=== PATIENT | female | born 1980 | race Caucasian/White ===

== ENCOUNTER 2017-08-25 16:19 | Emergency (ER) | payer SELFPAY ==
[2017-08-25 16:40] VITALS: BP 141/77; PULSE 76; TEMP 98.9; BMI 28.3
[2017-08-25] MEDS ORDERED: KETOROLAC TROMETHAMINE 60 MG/2 ML VIAL IM ONE (18:26)
[2017-08-25] MEDS ORDERED: diazePAM 5 MG TABLET PO ONE (18:26)
[2017-08-25] MEDS ORDERED: KETOROLAC TROMETHAMINE 60 MG/2 ML VIAL ONE (18:30)
[2017-08-25] MEDS ORDERED: diazePAM 5 MG TABLET ONE (18:30)
--- NOTE | 2017-08-25 18:37 | PDOC ---
History of Present Illness - General Chief Complaint: Back Pain Stated Complaint: PAIN Time Seen by Provider: 08/25/17 17:28 - History of Present Illness Initial Comments: 08/25/17 18:30 CHIEF COMPLAINT: lower back pain HISTORY OF PRESENT ILLNESS: 36 yo F with hx of herniated discs presents to [facility] with lower back pain x 3 days. Patient states "I did something, I'm not sure what, to my back and it just hasn't gotten any better." Patient states the pain radiates "mostly down my left leg, but sometimes my right too" but denies any loss of bowel or bladder function or loss of sensation to extremities. Patient states she did have an MRI done in [place] about 2 years ago that showed that she had herniated discs at L4/L5. PAST MEDICAL HISTORY: Denies past medical history FAMILY HISTORY: Denies SOCIAL HISTORY: Denies tobacco, alcohol, illicit drug use. SURGICAL HISTORY: Denies ALLERGIES: No known drug allergies REVIEW OF SYSTEMS General/Constitutional: Denies fever or chills. Denies weakness, weight change. HEENT: Denies change in vision. Denies ear pain or discharge. Denies sore throat. Cardiovascular: Denies chest pain or shortness of breath. Respiratory: Denies cough, wheezing, or hemoptysis. Gastrointestinal: Denies nausea, vomiting, diarrhea or constipation. Denies rectal bleeding. Genitourinary: Denies dysuria, frequency, or change in urination. Musculoskeletal: Lower back pain radiating to legs. Skin and breasts: Denies rash or easy bruising. Neurologic: Denies headache, vertigo, loss of consciousness, or loss of sensation. PHYSICAL EXAM General Appearance: Well-appearing, appropriately dressed. No apparent distress. HEENT: EOMI, PERRLA. No conjunctival pallor. No photophobia, scleral icterus. Neck: No midline tenderness to cervical spine. Supple. Trachea midline. No tenderness, rigidity, carotid bruit, stridor, lymphadenopathy, or thyromegaly. Respiratory/Chest: Lungs CTAB. No shortness of breath, chest tenderness, respiratory distress, accessory muscle use. No crackles, rales, rhonchi, stridor , wheezing, dullness Cardiovascular: RRR. S1, S2. No JVD, murmur, bradycardia, tachycardia. Gastrointestinal/Abdominal: Normal bowel sounds. Abdomen soft, non-distended. No tenderness or rebound tenderness. No organomegaly, pulsatile mass, guarding , hernia, hepatomegaly, splenomegaly. Musculoskeletal/Extremities: Midline tenderness to lumbar spine and to left lower back. FROM of all extremities, normal capillary refill. Pelvis Stable. No tenderness to extremities, pedal edema, swelling, erythema or deformity. Integumentary: Appropriate color, dry, warm. No cyanosis, erythema, jaundice or rash Neurologic: practice billing associate II-XII intact. Fully oriented, alert. Appropriate mood/affect. Motor strength 5/5. No appreciable EOM palsy, facial droop or sensory deficit. Past History - Past Medical History Allergies/Adverse Reactions: Allergies Allergy/AdvReac Type Severity Reaction Status Date / Time No Known Allergies Allergy Verified 08/25/17 16:29 Home Medications: Ambulatory Orders Cyclobenzaprine HCl 7.5 mg PO HS #7 tablet 08/25/17 Ibuprofen [Advil -] 600 mg PO TID 08/25/17 Naproxen [Naprosyn -] 250 mg PO BID #14 tablet 08/25/17 Psychiatric Problems: Yes (Anxiety/ Depression) Other medical history: Fibromyalgia/ herniated disc L4 & L5/ - Immunization History Immunization Up to Date: Yes - Suicide/Smoking/Psychosocial Hx Smoking History: Current every day smoker Number of Cigarettes Smoked Daily: 10 Information on smoking cessation initiated: No Hx Alcohol Use: No Drug/Substance Use Hx: No Substance Use Type: None *Physical Exam - Vital Signs Last Vital Signs Temp Pulse Resp BP Pulse Ox 98.9 F 76 15 141/77 99 08/25/17 16:30 08/25/17 16:30 08/25/17 16:30 08/25/17 16:30 08/25/17 16:30 ED Treatment Course - ADDITIONAL ORDERS Additional order review: Laboratory Results 08/25/17 18:10 Urine HCG, Qual Negative Medical Decision Making - Medical Decision Making 08/25/17 18:37 36 yo F with hx of herniated discs presents to [facility] with lower back pain x 3 days. -Toradol IM -Valium po *DC/Admit/Observation/Transfer Diagnosis at time of Disposition: Back pain with sciatica - Discharge Dispostion Disposition: HOME Condition at time of disposition: Stable Admit: No - Prescriptions Prescriptions: Cyclobenzaprine HCl 7.5 mg PO HS #7 tablet Naproxen [Naprosyn -] 250 mg PO BID #14 tablet - Referrals Referrals: Domingo Coffey MD [Staff Physician] - - Patient Instructions Printed Discharge Instructions: DI for Back Pain With Sciatica Additional Instructions: Please take medications as prescribed; do NOT drive, drink alcohol, or operate machinery while taking cyclobenzaprine (Flexeril). Follow up with orthopedics within the next 1-2 weeks for further evaluation and possible therapy or repeat MRI. If you develop ANY loss of bowel or bladder function, loss of sensation/ numbness/tingling to your legs, or are unable to walk due to your pain, or you develop any new or worsening symptoms, please return to the ER.
== END 2017-08-25 19:11 | disposition home or self-care (01) ==
LOC: JERFT 16:19
PROC: 3E0233Z Introduction of Anti-inflammatory into Muscle, Percutaneous Approach (ICD-10-PCS; principal; 2017-08-25)
DX: M54.42 Lumbago with sciatica, left side (principal); M51.16 Intervertebral disc disorders with radiculopathy, lumbar region; F41.8 Other specified anxiety disorders; M79.7 Fibromyalgia; F17.210 Nicotine dependence, cigarettes, uncomplicated
CPT/HCPCS: 84703; 99281-25

== ENCOUNTER 2018-05-26 15:38 | Emergency (ER) | payer OTHER ==
[2018-05-26 15:42] VITALS: TEMP 98.1; BMI 27.4
[2018-05-26] MEDS ORDERED: ONDANSETRON 4 MG/2 ML VIAL IVPUSH STA (16:42)
--- NOTE | 2018-05-26 16:42 | PDOC ---
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 She states she is concerned about the LUQ pain because it is unlike her usual cramping with her IBS. She reports the pain as constant, localized, 7/10, and tense. She reportedly had one BM today, but it was very small and dry. She reports her last normal BM was 3 days ago and usually has a large BM every couple of days. Secondarily, she reports intermittent nausea, but no vomiting. The patient denies chest pain, shortness of breath, headache and dizziness. The patient denies fever, chills, diarrhea. The patient denies dysuria, frequency, urgency and hematuria. Allergies: NKDA Past surgical history: partial hysterectomy, cholecystectomy (3 months ago) Social history: denies tobacco use. PCP - Dr. Oviedo ([facility]) - Physicial Exam PE: 05/26/18 16:43 GENERAL: Well developed, well nourished. Awake and alert. No acute distress. HEENT: Normocephalic, atraumatic. PERRLA, EOMI. No conjunctival pallor. Sclera are non- icteric. Moist mucous membranes. Oropharynx is clear. NECK: Supple. Full ROM. No JVD. Carotid pulses 2+ and symmetric, without bruits. No thyromegaly. No lymphadenopathy. CARDIOVASCULAR: Regular rate and rhythm. No murmurs, rubs, or gallops. Distal pulses are 2+ and symmetric. PULMONARY: No evidence of respiratory distress. Lungs clear to auscultation bilaterally. No wheezing, rales or rhonchi. ABDOMINAL: (+) point tenderness to LUQ just under left anterior ribs. Soft. Non-distended. No rebound or guarding. No organomegaly. Normoactive bowel sounds. MUSCULOSKELETAL Normal range of motion at all joints. No bony deformities or tenderness. No CVA tenderness. EXTREMITIES: No cyanosis. No clubbing. No edema. No calf tenderness. SKIN: Warm and dry. Normal capillary refill. No rashes. No jaundice. NEUROLOGICAL: Alert, awake, appropriate. Cranial nerves 2-12 intact. Normoreflexic in the upper and lower extremities. Normal speech. Toes are down-going bilaterally. Gait is normal without ataxia. PSYCHIATRIC: Cooperative. Good eye contact. Appropriate mood and affect. - Medical Decision Making 05/26/18 16:45 Documentation prepared by Stephanie Bynum, acting as medical safety director for Salima Burns MD <Stephanie Bynum - Last Filed: 05/26/18 16:43> - Resident Resident Name: Gen Shoemaker - ED Attending Attestation I have performed the following: I have examined & evaluated the patient, The case was reviewed & discussed with the resident, I agree w/resident's findings & plan, Exceptions are as noted - Medical Decision Making 05/27/18 01:08 labs reviewed unremarkable imp IBD plan follow up with GI <Salima Burns - Last Filed: 05/27/18 01:09>
--- NOTE | 2018-05-26 16:46 | PDOC ---
History of Present Illness - General Chief Complaint: Pain Stated Complaint: ABD PAIN Time Seen by Provider: 05/26/18 16:15 - History of Present Illness Initial Comments: 05/26/18 16:15 Ms. Nugent is a 37 yo female w/ pmh of herniated discs who presents for evaluation of The patient denies chest pain, shortness of breath, headache and dizziness. Denies fever, chills, nausea, vomit, diarrhea and constipation. Denies dysuria, frequency, urgency and hematuria. Allergies: Past History - Past Medical History Allergies/Adverse Reactions: Allergies Allergy/AdvReac Type Severity Reaction Status Date / Time No Known Allergies Allergy Verified 05/26/18 15:42 Home Medications: Ambulatory Orders Cyclobenzaprine HCl 7.5 mg PO HS #7 tablet 08/25/17 Ibuprofen [Advil -] 600 mg PO TID 08/25/17 Naproxen [Naprosyn -] 250 mg PO BID #14 tablet 08/25/17 COPD: Yes GI Disorders: Yes (IBS) Psychiatric Problems: Yes (Anxiety/ Depression) Other medical history: fibromyalgia - Surgical History Cholecystectomy: Yes - Immunization History Immunization Up to Date: Yes - Suicide/Smoking/Psychosocial Hx Smoking History: Current every day smoker Number of Cigarettes Smoked Daily: 20 Information on smoking cessation initiated: No Hx Alcohol Use: No Drug/Substance Use Hx: No Substance Use Type: None Review of Systems - Review of Systems Comments:: 05/26/18 16:16 GENERAL/CONSTITUTIONAL: No fever or chills. No weakness. HEAD, EYES, EARS, NOSE AND THROAT: No change in vision. No ear pain or discharge. No sore throat. CARDIOVASCULAR: No chest pain or shortness of breath RESPIRATORY: No cough, wheezing, or hemoptysis. GASTROINTESTINAL: No nausea, vomiting, diarrhea or constipation. GENITOURINARY: No dysuria, frequency, or change in urination. MUSCULOSKELETAL: No joint or muscle swelling or pain. No neck or back pain. SKIN: No rash NEUROLOGIC: No headache, vertigo, loss of consciousness, or change in strength/ sensation. ENDOCRINE: No increased thirst. No abnormal weight change HEMATOLOGIC/LYMPHATIC: No anemia, easy bleeding, or history of blood clots. ALLERGIC/IMMUNOLOGIC: No hives or skin allergy. *Physical Exam - Vital Signs Last Vital Signs Temp Pulse Resp BP Pulse Ox 98.1 F 79 18 141/85 99 07/01/18 15:39 05/26/18 15:39 05/26/18 15:39 05/26/18 15:39 05/26/18 15:39
--- NOTE | 2018-05-26 17:02 | PDOC ---
History of Present Illness - General Chief Complaint: Pain Stated Complaint: ABD PAIN Time Seen by Provider: 05/26/18 16:15 - History of Present Illness Initial Comments: 05/26/18 16:55 Ms. Nugent is a 37 yo female w/ pmh of Fibromyalgia, IBS, diverticulitis, diverticulosis who presents for evaluation of constipation and stomach pain. Last BM today was small and hard; she had not previously had a bowel movement for 3 days - reports this is normal for her. Also, reports 06/04 constant abdominal pain and minor nausea (both constant) since Sunday. The patient denies chest pain, shortness of breath, headache and dizziness. Denies fever, chills, vomit, and diarrhea. Denies dysuria, frequency, urgency and hematuria. Allergies: NKDA Past History - Past Medical History Allergies/Adverse Reactions: Allergies Allergy/AdvReac Type Severity Reaction Status Date / Time No Known Allergies Allergy Verified 05/26/18 15:42 Home Medications: Ambulatory Orders Cyclobenzaprine HCl 7.5 mg PO HS #7 tablet 08/25/17 Ibuprofen [Advil -] 600 mg PO TID 08/25/17 Naproxen [Naprosyn -] 250 mg PO BID #14 tablet 08/25/17 Magnesium Citrate [Citroma -] 195 ml PO ONCE #1 bottle 05/26/18 Polyethylene Glycol 3350 [Miralax (For Bowel Prep) -] 17 gm PO DAILY #1 bottle 05/26/18 COPD: Yes GI Disorders: Yes (IBS) Psychiatric Problems: Yes (Anxiety/ Depression) Other medical history: fibromyalgia - Surgical History Cholecystectomy: Yes - Immunization History Immunization Up to Date: Yes - Suicide/Smoking/Psychosocial Hx Smoking History: Current every day smoker Number of Cigarettes Smoked Daily: 20 Information on smoking cessation initiated: No Hx Alcohol Use: No Drug/Substance Use Hx: No Substance Use Type: None Review of Systems - Review of Systems Comments:: 05/26/18 16:58 GENERAL/CONSTITUTIONAL: No fever or chills. No weakness. HEAD, EYES, EARS, NOSE AND THROAT: No change in vision. No ear pain or discharge. No sore throat. CARDIOVASCULAR: No chest pain or shortness of breath RESPIRATORY: No cough, wheezing, or hemoptysis. GASTROINTESTINAL: +RUQ pain w/ nausea and constipation as described. No vomiting or diarrhea. GENITOURINARY: No dysuria, frequency, or change in urination. MUSCULOSKELETAL: No joint or muscle swelling or pain. No neck or back pain. SKIN: No rash NEUROLOGIC: No headache, vertigo, loss of consciousness, or change in strength/ sensation. ENDOCRINE: No increased thirst. No abnormal weight change HEMATOLOGIC/LYMPHATIC: No anemia, easy bleeding, or history of blood clots. ALLERGIC/IMMUNOLOGIC: No hives or skin allergy. *Physical Exam - Vital Signs Last Vital Signs Temp Pulse Resp BP Pulse Ox 98.1 F 79 18 141/85 99 05/26/18 15:39 05/26/18 15:39 05/26/18 15:39 05/26/18 15:39 05/26/18 15:39 - Physical Exam Comments: 05/26/18 16:58 GENERAL: Awake, alert, and fully oriented, in no acute distress HEAD: No signs of trauma, normocephalic, atraumatic EYES: PERRLA, EOMI, sclera anicteric, conjunctiva clear ENT: Auricles normal inspection, hearing grossly normal, nares patent, oropharynx clear without exudates. Moist mucosa NECK: Normal ROM, supple, no lymphadenopathy, JVD, or masses LUNGS: No distress, speaks full sentences, clear to auscultation bilaterally HEART: Regular rate and rhythm, normal S1 and S2, no murmurs, rubs or gallops, peripheral pulses normal and equal bilaterally. ABDOMEN: +LUQ pain. Soft, normoactive bowel sounds. No guarding, no rebound. No masses EXTREMITIES: Normal inspection, Normal range of motion, no edema. No clubbing or cyanosis. NEUROLOGICAL: Cranial nerves II through XII grossly intact. Normal speech, normal gait, no focal sensorimotor deficits SKIN: Warm, Dry, normal turgor, no rashes or lesions noted. ED Treatment Course - LABORATORY CBC & Chemistry Diagram: 05/26/18 17:20 05/26/18 17:20 Medical Decision Making - Medical Decision Making 05/26/18 18:55 Ms. Nugent is a 37 yo female w/ pmh as described who presents for evaluation of abdominal pain. Patient now reporting she believes excess stool to be etiology of pain - agree with this assessment. Flat/Upright XR confirms patient has excess stool and no air fluid levels indicative of obstruction. Labs grossly wnl as below. Awaiting UA and will discharge with miralax / citroma for symptomatic relief assuming no acute UA findings. Patient signed off to Dr. Nieto for further evaluation. Laboratory Results - last 24 hr 05/26/18 05/26/18 17:20 17:20 WBC 8.8 RBC 3.99 Hgb 13.2 Hct 39.0 MCV 97.7 H MCH 33.1 MCHC 33.9 RDW 14.0 Plt Count 173 MPV 9.9 Absolute Neuts (auto) 5.6 Neutrophils % 63.5 Lymphocytes % 28.1 Monocytes % 5.8 Eosinophils % 1.7 Basophils % 0.9 Nucleated RBC % 0 Sodium 141 Potassium 4.3 Chloride 108 H Carbon Dioxide 26 Anion Gap 7 L BUN 15 Creatinine 1.0 Creat Clearance w eGFR > 60 Random Glucose 82 Calcium 8.4 L Total Bilirubin 0.4 AST 29 ALT 33 Alkaline Phosphatase 82 Total Protein 6.4 Albumin 3.3 L *DC/Admit/Observation/Transfer Diagnosis at time of Disposition: Constipation Qualifiers: Constipation type: unspecified constipation type Qualified Code(s): K59.00 - Constipation, unspecified - Discharge Dispostion Disposition: HOME Condition at time of disposition: Good - Prescriptions Prescriptions: Magnesium Citrate [Citroma -] 195 ml PO ONCE #1 bottle Polyethylene Glycol 3350 [Miralax (For Bowel Prep) -] 17 gm PO DAILY #1 bottle - Referrals - Patient Instructions Printed Discharge Instructions: Constipation Additional Instructions: Come back to the ER for any new, worsening or concerning symptom. - Post Discharge Activity
[2018-05-26] MEDS ORDERED: KETOROLAC TROMETHAMINE 15 MG/ML VIAL IVPUSH ONE (17:08)
[2018-05-26] MEDS ORDERED: SODIUM CHLORIDE 1,000 ML IV STA (17:08)
[2018-05-26] MEDS ORDERED: KETOROLAC TROMETHAMINE 15 MG/ML VIAL ONE (17:12)
[2018-05-26] MEDS ORDERED: ONDANSETRON 4 MG/2 ML VIAL ONE (17:12)
[2018-05-26 17:30] LABS: BASO % 0.9 % (0-2.0); EOS % 1.7 % (0-4.5); HEMOGLOBIN 13.2 GM/dL (10.7-15.3); LYMPH % 28.1 % (8-40); MCH 33.1 pg (25.7-33.7); MCHC 33.9 g/dl (32.0-36.0); MEAN CELL VOLUME 97.7 fl (80-96); MEAN PLT VOLUME 9.9 fl (7.5-11.1); MONO % 5.8 % (3.8-10.2); NEUT % 63.5 % (42.8-82.8); PLATELET COUNT 173 K/MM3 (134-434); RBC 3.99 M/mm3 (3.60-5.2); WHITE BLOOD COUNT 8.8 K/mm3 (4.0-10.0)
[2018-05-26 17:41] VITALS: BP 108/77; PULSE 69
[2018-05-26 17:51] LABS: ALBUMIN 3.3 g/dl (3.4-5.0); ALK PHOS 82 U/L (45-117); ANION GAP 7 (8-16); BILIRUBIN,TOTAL 0.4 mg/dL (0.2-1.0); BLOOD UREA NITROGEN 15 mg/dL (7-18); CALCIUM 8.4 mg/dL (8.5-10.1); CHLORIDE 108 mmol/L (98-107); CO2 26 mmol/L (21-32); GLUCOSE,RANDOM 82 mg/dL (74-106); POTASSIUM 4.3 mmol/L (3.5-5.1); SGOT/AST 29 U/L (15-37); SGPT/ALT 33 U/L (12-78); SODIUM 141 mmol/L (136-145); TOT PROT 6.4 g/dl (6.4-8.2)
[2018-05-26] MEDS ORDERED: MAGNESIUM CITRATE 300 ML BOTTLE PO ONE (19:07)
[2018-05-26] MEDS ORDERED: MAGNESIUM CITRATE 300 ML BOTTLE ONE (19:27)
--- NOTE | 2018-05-26 19:41 | PDOC ---
*Physical Exam - Vital Signs Last Vital Signs Temp Pulse Resp BP Pulse Ox 98.1 F 69 17 108/77 99 05/26/18 17:40 05/26/18 17:40 05/26/18 17:40 05/26/18 17:40 05/26/18 17:40 ED Treatment Course - LABORATORY CBC & Chemistry Diagram: 05/26/18 17:20 05/26/18 17:20 - ADDITIONAL ORDERS Additional order review: Laboratory Results 05/26/18 17:20 Sodium 141 Potassium 4.3 Chloride 108 H Carbon Dioxide 26 Anion Gap 7 L BUN 15 Creatinine 1.0 Creat Clearance w eGFR > 60 Random Glucose 82 Calcium 8.4 L Total Bilirubin 0.4 AST 29 ALT 33 Alkaline Phosphatase 82 Total Protein 6.4 Albumin 3.3 L 05/26/18 17:20 RBC 3.99 MCV 97.7 H MCHC 33.9 RDW 14.0 MPV 9.9 Neutrophils % 63.5 Lymphocytes % 28.1 Monocytes % 5.8 Eosinophils % 1.7 Basophils % 0.9 - Medications Given in the ED: ED Medications Discontinued Medications Generic Name Dose Route Start Last Admin Trade Name Sergioq PRN Reason Stop Dose Admin Sodium Chloride 1,000 mls @ 1,000 mls/hr 05/26/18 17:08 05/26/18 17:27 Normal Saline - IV 05/26/18 18:07 1,000 mls/hr ASDIR STA Administration Ketorolac Tromethamine 15 mg 05/26/18 17:08 05/26/18 17:27 Toradol Injection - IVPUSH 05/26/18 17:09 15 mg ONCE ONE Administration Ondansetron HCl 4 mg 05/26/18 16:42 05/26/18 17:27 Zofran Injection IVPUSH 05/26/18 16:43 4 mg ONCE STA Administration *DC/Admit/Observation/Transfer Diagnosis at time of Disposition: Constipation - Discharge Dispostion Disposition: HOME Condition at time of disposition: Good Decision to Admit order: No - Prescriptions Prescriptions: Magnesium Citrate [Citroma -] 195 ml PO ONCE #1 bottle Polyethylene Glycol 3350 [Miralax (For Bowel Prep) -] 17 gm PO DAILY #1 bottle - Referrals - Patient Instructions Printed Discharge Instructions: Constipation Additional Instructions: Come back to the ER for any new, worsening or concerning symptom. - Post Discharge Activity
== END 2018-05-26 20:15 | disposition home or self-care (01) ==
LOC: JER 15:38
PROC: 3E0333Z Introduction of Anti-inflammatory into Peripheral Vein, Percutaneous Approach (ICD-10-PCS; principal; 2018-05-26)
PROC: 3E033GC Introduction of Other Therapeutic Substance into Peripheral Vein, Percutaneous Approach (ICD-10-PCS; 2018-05-26)
PROC: 3E0337Z Introduction of Electrolytic and Water Balance Substance into Peripheral Vein, Percutaneous Approach (ICD-10-PCS; 2018-05-26)
DX: K59.00 Constipation, unspecified (principal)
CPT/HCPCS: 36415; 74019-TC-FY; 80053; 85025; 96361; 96374; 96375; 99283-25; J7030

== ENCOUNTER 2021-01-14 20:11 | Emergency (ER) | payer SELFPAY ==
[2021-01-14 20:28] VITALS: BP 130/83; PULSE 70; TEMP 99.3; BMI 22.1
[2021-01-14] MEDS ORDERED: CYCLOBENZAPRINE HCL 5 MG TABLET PO STA (20:33)
== END 2021-01-14 20:47 | disposition home or self-care (01) ==
LOC: FER 20:11
DX: M25.512 Pain in left shoulder (principal)
CPT/HCPCS: 99283-25

== ENCOUNTER 2021-01-25 16:35 | Emergency (ER) | payer OTHER ==
[2021-01-25 17:06] VITALS: BP 123/82; PULSE 93; TEMP 97.8; BMI 21.2
== END 2021-01-25 17:33 | disposition home or self-care (01) ==
LOC: JERFT 16:35
DX: R22.0 Localized swelling, mass and lump, head (principal); K08.89 Other specified disorders of teeth and supporting structures
CPT/HCPCS: 99281-25

== ENCOUNTER 2021-02-21 17:09 | Emergency (ER) | payer OTHER ==
[2021-02-21 17:42] VITALS: BP 142/84; PULSE 77; TEMP 99; BMI 21.2
[2021-02-21] MEDS ORDERED: AMOX TR/POT CLAV 875MG/125MG TABLETS (FP) PO ONE (18:31)
[2021-02-21] MEDS ORDERED: AMOX TR/POT CLAV 875MG/125MG TABLETS (FP) ONE (18:36)
[2021-02-21] MEDS ORDERED: MUPIROCIN 2% TOPICAL OINTMENT 22 GM TUBE TP SCH (22:00)
== END 2021-02-21 19:12 | disposition home or self-care (01) ==
LOC: FER 17:09
DX: L08.9 Local infection of the skin and subcutaneous tissue, unspecified (principal)
CPT/HCPCS: 99285-25

== ENCOUNTER 2021-02-22 19:57 | Emergency (ER) | payer OTHER ==
[2021-02-22 20:41] VITALS: BP 166/99; PULSE 103; TEMP 99; BMI 21.2
== END 2021-02-22 21:53 | disposition home or self-care (01) ==
LOC: FER 19:57
DX: S30.824A Blister (nonthermal) of vagina and vulva, initial encounter (principal)
CPT/HCPCS: 99282-25

== ENCOUNTER 2021-03-03 23:12 | Emergency (ER) | payer OTHER ==
[2021-03-04 00:22] VITALS: BP 112/77; PULSE 89; TEMP 98.4; BMI 21.6
[2021-03-04] MEDS ORDERED: morphine CARPU-JECT 2 MG/1 ML DISP.SYRIN IM ONE (00:22)
[2021-03-04] MEDS ORDERED: MORPHINE SULFATE 2 MG/ML VIAL ONE (00:47)
== END 2021-03-04 03:32 | disposition home or self-care (01) ==
LOC: JER 23:12
PROC: 3E023GC Introduction of Other Therapeutic Substance into Muscle, Percutaneous Approach (ICD-10-PCS; principal; 2021-03-03)
DX: M79.604 Pain in right leg (principal)
CPT/HCPCS: 73523-TC-FY; 73552-TC-RT-FY; 73562-TC-RT-FY; 99284-25

== ENCOUNTER 2021-08-06 11:34 | Emergency (ER) | payer OTHER ==
[2021-08-06 12:42] VITALS: BP 113/68; PULSE 60; TEMP 97.6; BMI 19.5
[2021-08-06] MEDS ORDERED: ACETAMINOPHEN 500 MG TABLET (FP) PO ONE (13:04)
[2021-08-06] MEDS ORDERED: ACETAMINOPHEN 325 MG TABLET (FP) ONE (13:33)
[2021-08-06 15:02] LABS: URINE BENZODIAZEPINES NEGATIVE (NEGATIVE)
[2021-08-06 15:03] LABS: URINE BARBITURATES NEGATIVE (NEGATIVE)
[2021-08-06 15:05] LABS: COCAINE, UR POSITIVE (NEGATIVE); METHADONE, UR POSITIVE (NEGATIVE); OPIATES, URI POSITIVE (NEGATIVE); PHENCYCLIDINE,URINE POSITIVE (NEGATIVE); URINE AMPHETAMINES POSITIVE (NEGATIVE)
[2021-08-06] MEDS ORDERED: SODIUM CHLORIDE 0.9% 500 ML INFUS.BAG IV ONE (15:08)
[2021-08-06] MEDS ORDERED: KETOROLAC TROMETHAMINE 30 MG/1 ML VIAL IM ONE (15:27)
[2021-08-06] MEDS ORDERED: KETOROLAC TROMETHAMINE 30 MG/1 ML VIAL ONE (15:29)
== END 2021-08-06 15:49 | disposition home or self-care (01) ==
LOC: JER 11:34
PROC: 3E0233Z Introduction of Anti-inflammatory into Muscle, Percutaneous Approach (ICD-10-PCS; principal; 2021-08-06)
DX: S30.0XXA Contusion of lower back and pelvis, initial encounter (principal); M25.512 Pain in left shoulder; W01.0XXA Fall on same level from slipping, tripping and stumbling without subsequent striking against object, initial encounter
CPT/HCPCS: 72220-TC-FY; 73030-TC-LT-FY; 80307; 84703; 99285-25

== ENCOUNTER 2022-06-03 20:27 | Emergency (ER) | payer OTHER ==
[2022-06-03 20:43] VITALS: BP 153/81; PULSE 66; TEMP 98.1; BMI 23.0
[2022-06-03] MEDS ORDERED: KETOROLAC TROMETHAMINE 30 MG/1 ML VIAL IM ONE (22:18)
[2022-06-03] MEDS ORDERED: PENICILLIN V POTASSIUM 500 MG TABLET PO ONE (22:20)
[2022-06-03] MEDS ORDERED: KETOROLAC TROMETHAMINE 30 MG/1 ML VIAL ONE (22:23)
== END 2022-06-03 23:09 | disposition home or self-care (01) ==
LOC: JERFT 20:27
PROC: 3E0233Z Introduction of Anti-inflammatory into Muscle, Percutaneous Approach (ICD-10-PCS; principal; 2022-06-03)
DX: K03.81 Cracked tooth (principal)
CPT/HCPCS: 99284-25

== ENCOUNTER 2022-10-29 15:25 | Emergency (ER) | payer OTHER ==
[2022-10-29 15:39] VITALS: BP 169/91; PULSE 69; RESP 20; TEMP 98.2; BMI 23.0
[2022-10-29] MEDS ORDERED: KETOROLAC TROMETHAMINE 15 MG/ML VIAL IM ONE (16:56)
[2022-10-29] MEDS ORDERED: KETOROLAC TROMETHAMINE 15 MG/ML VIAL ONE (17:03)
[2022-10-29] MEDS ORDERED: BUPRENORPHINE/NALOXONE 8 MG/2 MG FILM PACKET SL SCH (18:15)
[2022-10-29] MEDS ORDERED: BUPRENORPHINE/NALOXONE 8 MG/2 MG FILM PACKET ONE (18:40)
[2022-10-29 21:00] LABS: EPI CELLS 29 /uL (0-25.1); HYALINE CASTS 2 /uL (0-3.1); PH,URINE 6.5 (5.0-8.0); URINE APPEARANCE CLEAR; URINE BACTERIA 185 /uL (0-1359); URINE BILIRUBIN 1+ (NEGATIVE); URINE COLOR DK YELLOW; URINE GLUCOSE (UA) NEGATIVE (NEGATIVE); URINE KETONE 1+ (NEGATIVE); URINE LEUK ESTERASE NEGATIVE (NEGATIVE); URINE NITRITE NEGATIVE (NEGATIVE); URINE PROTEIN 1+ (NEGATIVE); URINE RBC 13 /uL (0-23.9); URINE WBC 8 /uL (0-25.8)
[2022-10-29] MEDS ORDERED: CEPHALEXIN MONOHYDRATE 500 MG CAPSULE (UD) PO ONE (21:23)
[2022-10-29] MEDS ORDERED: CEPHALEXIN MONOHYDRATE 500 MG CAPSULE (UD) ONE (22:11)
== END 2022-10-29 22:31 | disposition home or self-care (01) ==
LOC: JER 15:25
PROC: 3E0233Z Introduction of Anti-inflammatory into Muscle, Percutaneous Approach (ICD-10-PCS; principal; 2022-10-29)
DX: M53.3 Sacrococcygeal disorders, not elsewhere classified (principal); M25.562 Pain in left knee
CPT/HCPCS: 72100-TC-FY; 72220-TC-FY; 73564-TC-LT-FY; 81003; 87086; 99285-25